=== PATIENT | male | born 1965 | race Two or more races ===

== ENCOUNTER 2023-12-13 03:06 | Emergency (ER) | payer SELFPAY ==
[~2023-12-13] VITALS: Ht 175.3 cm; Wt 111.4 kg
[~2023-12-13 03:06] MED LIST: FLO0.4C PO; HYDR-4353 PO; IBUP-1984 PO; ZES10T PO
[2023-12-13 03:14] VITALS: BP 175/109; PULSE 66; RESP 17; TEMP 98.1; O2SAT 95
== END 2023-12-13 06:55 | disposition left against medical advice (07) ==
LOC: ER 03:07
DX: R10.84 Generalized abdominal pain (principal); Z53.21 Procedure and treatment not carried out due to patient leaving prior to being seen by health care provider; Z88.2 Allergy status to sulfonamides